=== PATIENT | female | born 1990 | race Caucasian/White ===

== ENCOUNTER → 2017-08-24 14:20 | Outpatient (CLI) | payer BC, SELFPAY ==
[2017-08-24 16:12] LABS: Hematocrit 33.6 % (37-47); Hemoglobin 11.2 g/dl (12.0-15.0); Mean Corp Hgb Conc 33.3 g/gl (32-36); Mean Corpuscular Volume 93.1 fL (81-99); Mean Platelet Vol. 11.7 fl (6.2-12.0); Platelet Count 190 K/mm3 (150-450); RBC Distribution Width CV 12.9 % (11.6-14.6); RBC Distribution Width SD 42.9 fl (35.1-43.9); Red Blood Count 3.61 M/mm3 (4.2-5.4); White Blood Count 10.4 K/mm3 (4.4-11.0)
[2017-08-24 16:13] LABS: Scan Indicated on CBC? Y/N NO
[2017-08-24 16:20] LABS: Glucose Challenge Gest 1H 50g 84 mg/dL (70-140)
== END ==
PROVIDERS: Visit Provider Obstetrics & Gynecology
DX: Z34.83 Encounter for supervision of other normal pregnancy, third trimester (principal)
CPT/HCPCS: 82950; 85027; 86850

== ENCOUNTER → 2017-10-19 16:03 | Outpatient (CLI) | payer BC, SELFPAY ==
[2017-10-20 11:18] LABS: Group B Strep DNA By PCR POSITIVE (Negative); Probe Check PASS
== END ==
PROVIDERS: Visit Provider Obstetrics & Gynecology
DX: Z36.85 Encounter for antenatal screening for Streptococcus B (principal)
CPT/HCPCS: 87653

== ENCOUNTER 2017-11-01 21:24 | Emergency (ER) | payer BC, SELFPAY ==
[2017-11-01 21:26] VITALS: BP 120/73; PULSE 92; RESP 18; TEMP 36.6; O2SAT 97; BMI 24.5
[2017-11-01 21:41] VITALS: O2SAT 97
--- NOTE | 2017-11-01 22:20 | ED.VISSUMM ---
- ER Visit Summary Date of Service: 11/01/17 Chief Complaint: Sore throat, cough History of Present Illness: The patient is a 27 F 38 week gestation presents sore throat cough for the past 5 days. States has shortness of breath. No chest pains. No headache or visual changes. No right upper quadrant pain. He is followed by Dr. Farfan. Did see her on Thursday prior to symptoms starting. Has an appointment tomorrow. No urinary symptoms. No myalgias. No complications with thus far. No tobacco, alcohol, or illicit drug use. History of asthma. Denies any wheezing. Physical Examination: General: Alert and oriented ?3, no acute distress HEENT: Normocephalic, atraumatic. Moist mucosa membranes. TMs normal bilaterally. No posterior pharyngeal erythema. Neck: supple, nontender. Cardiovascular: Regular rate and rhythm, no murmurs Respiratory: Normal breath sounds, symmetric, no distress Abdomen: Soft, nontender, nondistended Extremities: Nontender, no edema, pulses intact ?4 Neuro: no focal neurological deficits. Test Results: [] Emergency Department Course and Treatment: Patient vital signs stable. Bedside ultrasound with movement, heart tones 125. Discussed URI symptoms. Discussed [id number] prescription. She also has appointment with her OB tomorrow for reevaluation. Patient no exertional dyspnea or hypoxia or tachycardia for concerns of PE symptoms. She will follow-up as scheduled, return if any worsening symptoms. Treatment Plan: [] Disposition: Discharge Impression: 1. Upper respiratory infection 2. Third trimester This note was generated with [employer] dictation software. It may contain incorrect words, spelling, and punctuation that were not noted in review of the chart prior to signing ED Disposition - Plan for ED Patient: Disposition: Home or Assisted Living Chief Complaint: Cold Sx Diagnosis: Upper respiratory infection, Third trimester Instructions: ED Upper Resp Infec Abx Tx Prescriptions: Albuterol Sulfate [Proventil Hfa] 6.7 gm IH Q4H PRN PRN #1 [email or web address] PRN Reason: Wheezing Azithromycin [Zithromax Z-Thad] 250 mg PO UD #1 box Referrals: Keerthi Davalos PA-C [Primary Care Provider] - Gaby Farfan MD [STAFF PHYSICIAN] - Keep Lilly appointment
[2017-11-01 23:03] VITALS: BP 114/69; PULSE 80; O2SAT 96
== END 2017-11-01 23:04 | disposition home or self-care (01) ==
PROVIDERS: Emergency Provider Emergency Medicine; Family Provider Family Medicine; PCP Family Medicine
DX: O26.893 Other specified pregnancy related conditions, third trimester (principal); J06.9 Acute upper respiratory infection, unspecified; Z3A.38 38 weeks gestation of pregnancy
CPT/HCPCS: 99282

== ENCOUNTER 2017-11-03 13:45 | Inpatient (IN) | payer BC, SELFPAY ==
[2017-11-03 13:12] VITALS: BMI 24.1
[2017-11-03 13:42] LABS: ROM Internal Control Test YES-OK TO RESULT pt. (Internal QC)
[2017-11-03 13:43] LABS: ROM Patient Test POSITIVE (Negative)
[2017-11-03 14:18] LABS: Hematocrit 36.3 % (37-47); Hemoglobin 12.3 g/dl (12.0-15.0); Mean Corp Hgb Conc 33.9 g/gl (32-36); Mean Corpuscular Hgb 30.8 pg (27.0-32.0); Mean Platelet Vol. 10.9 fl (6.2-12.0); Platelet Count 215 K/mm3 (150-450); RBC Distribution Width CV 12.3 % (11.6-14.6); RBC Distribution Width SD 40.9 fl (35.1-43.9); Red Blood Count 3.99 M/mm3 (4.2-5.4); Scan Indicated on CBC? Y/N NO; White Blood Count 14.6 K/mm3 (4.4-11.0)
[2017-11-03] MEDS: Oxytocin 30 units/NS 500 ml 30 UNITS/500 ML IV.SOLN IV (14:54)
[2017-11-03] MEDS: Lactated Ringers 1,000 ML 50 ML IV ×2 (18:55→19:45)
[2017-11-03] MEDS: fentaNYL-bupivacaine (epidural) 100 ML BAG EPIDURAL (19:15)
--- NOTE | 2017-11-03 20:03 | PCM.PN.BLA ---
Progress Note LABOR PROGRESS NOTE -- Pitocin induction after SROM 38 4/7 wk EGA Comfortable w/ epidural AVSS Lynn just inserted. EFM 110-120 with avg variability. Accels to 150s category I tracing. UCs q 2-4 mins CX 4-5 / -2 per RN check A/P: Induction of labor after SROM early in day. Continue pitocin induction prn. Watch continued progress, descent. Anticipate URI and has not picked up inhaler or Z pack. Afrin nasal spray for comfort while in labor, pushing. Pt to picker/puller or have the RX sent from [facility] outpatient pharmacy (sent there earlier today prior to pharmacy close)
--- NOTE | 2017-11-03 20:07 | PN_ITS ---
Progress Note LABOR PROGRESS NOTE -- Pitocin induction after SROM 38 4/7 wk EGA Comfortable w/ epidural AVSS Lynn just inserted. EFM 110-120 with avg variability. Accels to 150s category I tracing. UCs q 2-4 mins CX 4-5 / -2 per RN check A/P: Induction of labor after SROM early in day. Continue pitocin induction prn. Watch continued progress, descent. Anticipate URI and has not picked up inhaler or Z pack. Afrin nasal spray for comfort while in labor, pushing. Pt to pick up attendant or have the RX sent from [facility] outpatient pharmacy (sent there earlier today prior to pharmacy close)
[2017-11-03] MEDS: Oxymetazoline 0.05% 1 SPRAY SPRAY.BTL NASAL (21:41)
[2017-11-03] MEDS: Oxytocin 30 units/NS 500 ml 30 UNITS/500 ML IV.SOLN 334 UNITS IV (22:22)
--- NOTE | 2017-11-03 22:28 | PCM.OB.VAG ---
Vaginal Delivery Maternal Presentation: Spontaneous Rupture of Membranes Method of Induction: Pitocin Medical Reason for Induction: - - SROM Amniotic Membrane Rupture Type: Spontaneous at home Amniotic Fluid Description: Clear Final CORINA: 11/13/17 Final CORINA Source: US <20 weeks Gestational age: 38 Weeks and 4 Days Date of Procedure: 11/03/17 Pre-Operative Diagnosis: 38 4/7 wk SROM. Post-Operative Diagnosis: same Surgery/ Procedure Performed: Spontaneous Vaginal Delivery Anesthesiologist: Elyse Collins Type of Anesthesia: Epidural Description of Procedure: of a reeves viable male over intact perineum. Head delivered HAILE. No nuchal cord. Shoulders delivered easily. Vigorous, crying to maternal abdomen after bulb suction of OP and nares. Delayed cord clamping, cord then clamped x two and cut. Routine cord blood for typing collected. Ap 03/28. PP exam no laceration, no repair. Placenta delivered by spont expulsion, expression Normal appearing 3V cord, intact appearing, with trailing membranes. Ray Rocio counts correct Pt and infant tolerated delivery well EBL 250 cc Presentation: Vertex, HAILE Placental Delivery Description: Spontaneous, Expressed Placenta Disposition: [facility] Cord Vessel Description: 3 Vessels Cord Entanglement: None Drain: Lynn to straight drain Estimated Blood Loss: 250 A gender: Male (1 minute): 9 (5 minute): 9 Episiotomy Description: None Laceration: None Medications given after delivery: IV Pitocin Complications: None
--- NOTE | 2017-11-03 22:34 | DCINST_ITS ---
Discharge Diet: No Restrictions Discharge Activity: May Shower, May Take a Tub Bath May resume sexual activity in: 4-6 weeks Additional Activity Instructions:: Nothing in the vagina for 4-6 weeks. You may return to work/school in 6 weeks. Additional Instructions: If you experience any of the following, contact your healthcare provider. * Bleeding that soaks a pad every hour for 2 hours * Fever 100.4 or higher * Unrelieved abdominal pain * Problems urinating (including inability to urinate or burning while urinating) . * Visual changes * Severe headache * Flu-like symptoms * Pain or redness in one of both of your breasts * Pain, warmth, tenderness or swelling in your legs, especially the calf area * Frequent nausea and vomiting * Symptoms of depression or anxiety If you experience any of the following, call 911 or go to the nearest Emergency Room. * Chest pain * Problems breathing * Seizure activity * Partial or complete paralysis of a body part, slurred speech, weakness or drooping of the face, or a sudden inability to walk or hold your balance Allergies/Adverse Reactions: Allergies Sulfa (Sulfonamide Antibiotics) Allergy (Verified 11/01/17 21:26) Hives Medications to take at Discharge Vits [Prenatabs FA] 1 tablet PO DAILY 05/28/15 Acetaminophen 650 mg PO Q4H PRN PRN 11/01/17 Albuterol Sulfate [Proventil Hfa] 6.7 gm IH Q4H PRN PRN #1 hfa.aer.ad 11/01/17 Azithromycin [Zithromax Z-Thad] 250 mg PO UD #1 box 11/01/17 Orders to be completed after discharge: Electric breast pump Time Frame: 1 Year, Location: None Selected Please Follow Up With: Gaby Farfan MD - [phone] When: Call to make an appointment with your doctor in 6 weeks. Primary Care Physician: Keerthi Davalos PA-C [Primary Care Provider] - Proposed Discharge Date: 11/04/17
[2017-11-03] MEDS: Oxytocin 30 units/NS 500 ml 30 UNITS/500 ML IV.SOLN 167 UNITS IV (22:52)
[2017-11-03] MEDS: 0.9% Saline Lock 10 ML Syringe IV (23:55)
[2017-11-04 01:25] VITALS: BP 121/67; PULSE 90; RESP 18; TEMP 36.6
[2017-11-04 03:50] VITALS: BP 111/71; PULSE 80; RESP 18; TEMP 36.6; O2SAT 96
[2017-11-04] MEDS: Naproxen 250 MG Tablet PO ×3 (04:05→21:23)
--- NOTE | 2017-11-04 05:22 | NURSING ---
At 0125, henderson cath discontinued.
--- NOTE | 2017-11-04 07:03 | PCM.PN.OB ---
Subjective: PPD#1 Breast feeding well. some inc cramping with nursing. No concerns otherwise. states baby doing well: 6# 9 oz wt Objective: Semirecumbent in bed, holding and nursing baby - Physical Exam General: Alert, Oriented x3, Cooperative, No apparent distress HEENT: Atraumatic, EOMI Neck: Supple Abdomen: Soft - Fundus firm NT at 3 cm inferior to umbilicus Neurological: Cranial nerves II-XII grossly intact Psych/Mental Status: Normal Affect Vital Signs Temp Pulse Resp BP Pulse Ox 97.9 F 80 18 111/71 96 11/04/17 03:50 11/04/17 03:50 11/04/17 03:50 11/04/17 03:50 11/04/17 03:50 Oxygen Delivery Method Room Air Weight: 69.91 kg Body Mass Index (BMI) 24.1 Intake and Output for Last 24 Hours 11/02/17 11/03/17 11/04/17 23:59 23:59 23:59 Intake Total 100 / 100 300 / 300 Output Total 3200 / 3200 Balance 100 / 100 -2900 / -2900 Laboratory Tests Past 24 Hrs 11/03/17 11/03/17 11/03/17 13:10 13:55 13:55 WBC 14.6 H RBC 3.99 L Hgb 12.3 Hct 36.3 L MCV 91.0 MCH 30.8 MCHC 33.9 RDW 12.3 RDW Differential 40.9 Plt Count 215 MPV 10.9 Vag Amniotic Fld Detect POSITIVE H Blood Type A NEGATIVE Antibody Screen TNP 11/03/17 13:55 WBC RBC Hgb Hct MCV MCH MCHC RDW RDW Differential Plt Count MPV Vag Amniotic Fld Detect Blood Type Antibody Screen NEGATIVE Medical Necessity - Tobacco Use Smoking Status: Never smoker Assessment/Plan PPD#1 Stable pp. Continue routine care. GBS positive. Likely to stay until tomorrow.
[2017-11-04 08:00] VITALS: BP 109/73; PULSE 70; RESP 18; TEMP 36.3; O2SAT 97
[2017-11-04] MEDS: Azithromycin 250 MG Tablet 500 MG PO (08:50)
[2017-11-04] MEDS: Acetaminophen 500 MG Tablet 1000 MG PO ×2 (08:50→16:57)
[2017-11-04] MEDS: Albuterol 2.5 MG/3 ML VIAL.NEB. INHALATION (10:30)
[2017-11-04] MEDS: Prenatal Vits Tablet 1 TABLET PO (11:34)
[2017-11-04 11:43] VITALS: BP 105/63; PULSE 78; RESP 16; TEMP 36.1; O2SAT 99
[2017-11-04 16:42] VITALS: BP 99/62; PULSE 73; RESP 18; TEMP 36; O2SAT 98
[2017-11-04 19:40] VITALS: BP 96/57; PULSE 76; RESP 16; TEMP 36.1; O2SAT 98
[2017-11-05] MEDS: Acetaminophen 500 MG Tablet 1000 MG PO (01:09)
[2017-11-05 01:51] VITALS: BP 101/70; PULSE 69; RESP 17; TEMP 36; O2SAT 99
--- NOTE | 2017-11-05 07:31 | PCM.PN.OB ---
Subjective: PPD#2 Doing well. Nursing well. Minimal bleeding - Physical Exam General: Alert, Oriented x3, Cooperative, No apparent distress HEENT: Atraumatic Neck: Supple Abdomen: Soft - Fundus firm at 2 cm inferior to umbilicus, NT Psych/Mental Status: Normal Affect Vital Signs Temp Pulse Resp BP Pulse Ox 96.8 F L 69 17 101/70 99 11/05/17 01:51 11/05/17 01:51 11/05/17 01:51 11/05/17 01:51 11/05/17 01:51 Oxygen Delivery Method Room Air Weight: 69.91 kg Body Mass Index (BMI) 24.1 Intake and Output for Last 24 Hours 11/03/17 11/04/17 11/05/17 23:59 23:59 23:59 Intake Total 100 / 100 300 / 300 Output Total 4100 / 4100 Balance 100 / 100 -3800 / -3800 Medical Necessity - Tobacco Use Smoking Status: Never smoker Assessment/Plan PPD#2 Stable pp. Dischg home. RTO in 6 wk for pp check, prn sooner.
[2017-11-05] MEDS: Naproxen 250 MG Tablet PO (09:23)
[2017-11-05 09:25] VITALS: BP 97/63; PULSE 69; RESP 16; TEMP 36.5; O2SAT 97
[2017-11-05] MEDS: Senna/Docusate Sodium 1 Tablet PO (11:04)
[2017-11-05] MEDS: Prenatal Vits Tablet 1 TABLET PO (11:04)
[2017-11-05] MEDS: Azithromycin 250 MG Tablet PO (11:04)
== END 2017-11-05 13:15 | disposition home or self-care (01) | DRG 774 ==
LOC: WPOUT 13:52
PROVIDERS: Admitting Provider Obstetrics & Gynecology; Family Provider Family Medicine; PCP Family Medicine; Visit Provider Obstetrics & Gynecology
DX: O98.82 Other maternal infectious and parasitic diseases complicating childbirth (principal); B95.1 Streptococcus, group B, as the cause of diseases classified elsewhere; Z37.0 Single live birth; Z3A.38 38 weeks gestation of pregnancy
CPT/HCPCS: 59025; 59050; 84112; 85027; 86850; 86900; 99218; J7120; A4216; G0378

== ENCOUNTER → 2018-09-22 13:21 | Outpatient (CLI) | payer OTHER, SELFPAY ==
[2018-09-22 17:23] LABS: Chlamydia Trachomatis by PCR Negative (Negative); Neisserai gonorrhoeae by PCR Negative (Negative); Probe Check PASS; Sample Adequacy Control PASS; Specimen Processing Control PASS
== END ==
PROVIDERS: Visit Provider Obstetrics & Gynecology
DX: Z11.3 Encounter for screening for infections with a predominantly sexual mode of transmission (principal)
CPT/HCPCS: 87491; 87591

== ENCOUNTER → 2019-12-15 16:10 | Outpatient (CLI) | payer OTHER, SELFPAY ==
[2019-12-15 18:43] LABS: Chlamydia Trachomatis by PCR Negative (Negative); Neisserai gonorrhoeae by PCR Negative (Negative); Probe Check PASS; Sample Adequacy Control PASS; Specimen Processing Control PASS
[2019-12-21 02:33] LABS: HPV Reflexed? NOT INDICATED
== END ==
PROVIDERS: Visit Provider Obstetrics & Gynecology
DX: Z12.4 Encounter for screening for malignant neoplasm of cervix (principal); Z11.3 Encounter for screening for infections with a predominantly sexual mode of transmission; Z32.01 Encounter for pregnancy test, result positive
CPT/HCPCS: 87491; 87591; 88175; G0145

== ENCOUNTER → 2020-01-11 13:47 | Outpatient (CLI) | payer OTHER, SELFPAY ==
[2020-01-11 15:44] LABS: Absolute Lymphocyte Count 2.15 X10^3/uL (0.83-4.51); Absolute Neutrophil Count 6.1 X10^3/uL (2.0-7.7); Basophil# 0.06 X10^3/uL; Basophil% 0.7 % (0-1); Eosinophil# 0.12 X10^3/uL; Eosinophils% 1.3 % (0-5); Hematocrit 37.4 % (37-47); Hemoglobin 12.7 g/dL (12.0-15.0); Lymphocyte # 2.15 X10^3/ul (4.0); Lymphocyte % 24.1 % (19-41); Mean Corpuscular Hgb 30.5 pg (27.0-32.0); Mean Corpuscular Volume 89.7 fL (81-99); Monocyte# 0.48 X10^3/uL; Monocyte% 5.4 % (0-10); NRBC Flagged by Analyzer 0 % (0-5); Neutrophil # 6.08 X10^3/uL (2.7-7.7); Neutrophil % 68.3 % (47-70); Platelet Count 225 K/mm3 (150-450); RBC Distribution Width SD 38.8 fl (35.1-43.9); Red Blood Count 4.17 M/mm3 (4.2-5.4); White Blood Count 8.9 K/mm3 (4.4-11.0)
[2020-01-11 16:14] LABS: Color, Urine Yellow (Yellow); Glucose, Dipstick Normal (Normal); Ketone-Dipstick Negative (Negative); Leukocyte Esterase-Dipstick 25 /ul (Negative); Nitrite-Dipstick Negative (Negative); Occult Blood-Urine Negative /ul (Negative); Protein-Dipstick Negative (Negative); Specific Gravity, Urine 1.005 (1.002-1.030); Urine Bilirubin Dipstick Negative (Negative); Urine Clarity Clear (Clear); Urine Urobilinogen Normal (Normal)
[2020-01-11 16:19] LABS: Amphetamine Urine VISTA NEGATIVE (<1000 ng/mL); Barbiturate Urine VISTA NEGATIVE (< 200 ng/mL); Benzodiazepine Urine VISTA NEGATIVE (< 200 ng/mL); Cocaine Urine VISTA NEGATIVE (< 300 ng/mL); Ecstacy Urine VISTA NEGATIVE (< 500 ng/mL); Methadone Urine VISTA NEGATIVE (< 300 ng/mL); PCP Urine VISTA NEGATIVE (< 25 ng/mL); THC Urine VISTA NEGATIVE (< 50 ng/mL); Vista UDS pH Range 6
[2020-01-11 16:23] LABS: Free T3 2.5 pg/mL (2.18-3.98); T4 Free Direct 0.85 ng/dL (0.76-1.46); Thyroid Stim Hormone (TSH) 3.85 uIU/mL (0.358-3.74)
[2020-01-12 02:00] LABS: Prenatal RPR NONREACTIVE (NONREACTIVE)
[2020-01-12 10:35] LABS: HIV - WCH Non-Reactive (Nonreactive); Hepatitis B Surface Antigen Non-Reactive (Nonreactive); Hepatitis C Antibody Non-Reactive (Nonreactive); Rubella IgG 423.7 IU/mL
== END ==
PROVIDERS: Visit Provider Obstetrics & Gynecology
DX: O99.281 Endocrine, nutritional and metabolic diseases complicating pregnancy, first trimester (principal); E03.8 Other specified hypothyroidism; Z3A.00 Weeks of gestation of pregnancy not specified
CPT/HCPCS: 36415; 80307; 81002; 84439; 84443; 84481; 85025; 86703; 86762; 86803; 87340

== ENCOUNTER 2020-07-14 19:12 | Outpatient (CLI) | payer OTHER, SELFPAY ==
[2020-07-14 19:30] VITALS: BP 106/62; PULSE 97; TEMP 36.4
[2020-07-14 19:42] VITALS: BMI 23.6
[2020-07-14 20:20] LABS: ROM Internal Control Test YES-OK TO RESULT pt. (Internal QC)
[2020-07-14 20:21] LABS: ROM Patient Test Negative (Negative)
--- NOTE | 2020-07-14 20:29 | NURSING ---
Dr. Lynn notified that medical exam score required in person physician evaluation. Provider states he is not coming in to evaluate patient at this time and to discharge patient to home.
--- NOTE | 2020-07-20 09:21 | OB.TRI.NOTE ---
History of Present Illness Date of Service: 07/14/20 Was patient seen by the physician?: No Reason For Visit: R/O LABOR Date of Service: 07/14/20 Final CORINA: 07/29/20 Final CORINA Source: US <20 weeks Gestational age: 37 Weeks and 6 Days History of Present Illness: 37+ week intrauterine with patient presenting for possible rupture of membranes. She noted some leaking after sled riding. Allergies Sulfa (Sulfonamide Antibiotics) Allergy (Verified 07/14/20 19:42) Hives Laboratory Studies: Laboratory Tests 07/14/20 Range/Units 19:45 Vag Amniotic Fld Detect Negative (Negative) Physical Exam Vitals: Vital Signs Temp Pulse BP 97.6 F L 97 106/62 07/14/20 19:30 07/14/20 19:30 07/14/20 19:30 NST - FHR Rate Baby A NST Reactive:: Yes FHR Category:: Category I Impression/Plan 37+ week intrauterine with some leaking of urine. ROM test was negative. NST was reactive. Patient encouraged to minimize sled riding for the balance of her . Routine follow-up otherwise in the office.
== END 2020-07-14 20:40 | disposition home or self-care (01) ==
LOC: WPOUT 19:14 → WP 19:14
PROVIDERS: Visit Provider Obstetrics & Gynecology
DX: O26.893 Other specified pregnancy related conditions, third trimester (principal); R32 Unspecified urinary incontinence; Z3A.37 37 weeks gestation of pregnancy; Z88.2 Allergy status to sulfonamides
CPT/HCPCS: 59025; 59050; 84112; 99218; G0378

== ENCOUNTER 2020-07-21 21:20 | Inpatient (IN) | payer OTHER, SELFPAY ==
[2020-07-21 12:51] VITALS: BMI 23.9
[2020-07-21 14:46] LABS: Group B Strep DNA By PCR Negative (Negative); Internal Control PASS; Probe Check PASS; Specimen Processing Control PASS
[2020-07-21 20:42] VITALS: PULSE 88; TEMP 36.9; O2SAT 98
[2020-07-21 20:48] VITALS: BP 110/60; PULSE 85
[2020-07-21 21:11] LABS: ROM Internal Control Test YES-OK TO RESULT pt. (Internal QC); ROM Patient Test Negative (Negative)
[2020-07-21] MEDS: Lactated Ringers 1,000 ML 50 ML IV (21:50)
[2020-07-21 22:00] LABS: Absolute Lymphocyte Count 2.21 X10^3/uL (0.83-4.51); Absolute Neutrophil Count 7.8 X10^3/uL (2.0-7.7); Basophil# 0.05 X10^3/uL; Basophil% 0.5 % (0-1); Eosinophil# 0.19 X10^3/uL; Eosinophils% 1.7 % (0-5); Hematocrit 32.1 % (37-47); Hemoglobin 10.8 g/dL (12.0-15.0); Lymphocyte # 2.21 X10^3/ul (4.0); Lymphocyte % 19.9 % (19-41); Mean Corp Hgb Conc 33.6 g/dL (32-36); Mean Corpuscular Volume 89.2 fL (81-99); Monocyte# 0.76 X10^3/uL; Monocyte% 6.9 % (0-10); NRBC Flagged by Analyzer 0 % (0-5); Neutrophil # 7.78 X10^3/uL (2.7-7.7); Neutrophil % 70.1 % (47-70); Platelet Count 193 K/mm3 (150-450); RBC Distribution Width CV 12.1 % (11.6-14.6); RBC Distribution Width SD 39.1 fl (35.1-43.9); White Blood Count 11.1 K/mm3 (4.4-11.0)
[2020-07-21 22:01] VITALS: BP 108/60; PULSE 90
[2020-07-21 22:05] VITALS: PULSE 86; TEMP 36.7; O2SAT 97
--- NOTE | 2020-07-21 22:18 | NURSING ---
Error in charting. IV placed in left wrist, not right wrist.
--- NOTE | 2020-07-21 22:50 | NURSING ---
Late entry: RN received negative results for covid antigen swab collected by Tyrone Mosquera RN. When further questioned about covid symptoms, pt reported symptoms started the week before [facility] with asthma symptoms also worsening. Pt received covid antibody test which resulted negative two weeks prior to admission. Pt reports no new symptoms since onset before [facility]. RN notified charge nurse, Tyrone Mosquera RN. Pt to be treated as covid negative.
[2020-07-21 23:38] VITALS: O2SAT 98
[2020-07-21 23:39] VITALS: BP 105/61; PULSE 86; TEMP 36.5
[2020-07-22] VITALS (42 sets, daily range): BP systolic 88–136; BP diastolic 51–81; PULSE 52–88; RESP 16–18; TEMP 36–37.1; O2SAT 94–100
[2020-07-22] MEDS: Oxytocin 30 units/NS 500 ml 30 UNITS/500 ML IV.SOLN IV (06:11)
[2020-07-22] MEDS: Lactated Ringers 500 ML 999 ML IV (09:40)
--- NOTE | 2020-07-22 09:59 | PCM.HP.BLA ---
History and Physical Date of Admission: 07/22/20 [facility] [place] - H[place]ORY AND PHYSICAL (07/22/2020) Name: BREANNA GARCIA History of This : This is a 29-year-old G3, P2 who presents in labor at 39 weeks gestation. care has otherwise been uneventful. OB Physician: ERIN Brighton's Physician: Nahomy Carnes at [facility] ...................................................................... : 1990 Age: 29 Address: [address] [place] [address] Phone: (h) [phone] ([phone] Insurance Carrier: [facility] [id number] Emergency Contact: REI GARCIA/ [phone] ...................................................................... Final CORINA: 07/29/20 By Ultrasound: 11 weeks 3 days PARITY: (G-Total Pregnancies P-Fullterm,Premature,Induced AB,Spont AB, Ectopics, Multiple,Living) CORINA CONFIRMATION: By LMP: 10/11/19 Final CORINA: 07/29/20 OB PROBLEM LIST: ALLERGIC TO SULFA. A negative RhoGAM at 28 wks Asthma History Adi's TSH wnl Free T4 low at 28wks. Subclinical hypothyroidism, repeat Thyroid panel at 34wks has an uncle and cousins with Hemophilia says his mother was tested and IS NOT a carrier for hemophilia. Low fluid on first 2 pregnancies both induced--check HORACIO weekly starting 34 wks MSAFP and CF testing declined Presumptive COVID 28 wks gestation ALLERGIES: Sulfa Hives Sulfa (Sulfonamide Antibiotics) Hives and/or rash MEDICATIONS: Flonase 50 mcg/actuation spray,suspension as needed fluticasone 55 mcg-salmeterol 14 mcg/actuation breath activated powder As Directed 28 mg iron-800 mcg tablet One pill by mouth once a day ProAir HFA 90 mcg/actuation aerosol inhaler As Directed Zyrtec 10 mg capsule daily SOCIAL HISTORY: Smoking - Never Alcohol Use - weekends not while and beer not while Diet - balanced Diet, caffeine < 2 drinks per day and water tries for 4-5 16 oz Lifestyle - low stress lifestyle and Exercise - walks in the evenings/ busy with family 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, 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, 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, 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 Illicit Drug Use - denies use of street drugs Sexual Activity - Residence - lives with Place of - [place], [place] Hours Worked - 32-40 Spouse-Sig Other Name - Rei Spouse-Sig Other Occupation - Contractor Spouse-Sig Other Phone No - [phone] Children Name(s) - Andrey Wasserman PRIOR DELIVERY HISTORY DEL DATE GEST LAB WT LB WT OZ TYPE ANES LABOR TX 17 Oct 18 39 7 6 3 Vag Epidural No 19 Jul 03 41 14 5 7 Vag Epidural No ANTEPARTUM FLOW CHART VISIT GE RTC FU F F DC U U DATE WK MD WKS HT PN HR M SS BP ED WT DC GL D EF ST __ ____ ___ __ __ ___ __ __ __ ___ __ __ __ ___ __ 28 Jun JMW 1 34 V + + 116/76 0 151 - - Jun JMW 1 34 + + 114/62 sl 152 - - Jun JM 1 36 V + + 96/68 sl 151 1 50 -3 Jun JMW 2 34 + + 100/68 0 148 - - May JM 2 32 V + + 126/72 0 150 - - Jun 18 JMW 2 30 + + 100/60 sl 147 tr - May 16 JM 2 28 - + + 115/56 0 147 - - Apr 12 JMW 4 24 + + 115/69 0 142 tr - Mar 08 JMW 4 20 + + 114/58 0 136 - - Feb 01 JMW 3 16 + O 100/58 0 127 - - Dec 28 JMW 4 U+ US 90/70 0 124 - - ANTEPARTUM NOTE(S): Jul 16 2020: ctx's, Induce per Request, AGA by u/s Jul 10 2020: Doing Well, HORACIO subjectively normal Jul 03 2020: LARC completed, GBS today, u/s today Jun 19 2020: HORACIO=13 today Jun 05 2020: see progress note May 22 2020: Doing Well May 08 2020: doing well, Rhogam, 1hr GTT, TSH,Free T4 Apr 10 2020: Doing Well, Glucola Given Mar 13 2020: Sono Today,(R) foot pain periodically Feb 14 2020: Declines AFP, Doing Well Jan 10 2020: Labs and NOB papers today. Discuss Hashimotos. COMPREHENSIVE ANTEPARTUM NOTE(S): Jul 16 2020: Breanna is here for a PNV. Good FM. No edema present. Reports ctx's and cramping at least every hour. Clear discharge noticed in the past few days. Dilated 1 cm when she went to 07/14. Would like to do a cervix check and membrane sweep today. States she is ready to move things along. Interested in induction if possible. No concerns expressed at this time. Jul 14 2020: Call Msg from 6:15 this evening. Pt of Dr. Lynn. Breanna calling @ 37 wks 6 days stating she was sled riding and is pretty sure her water broke. Sent to OB for confirmation. OB and Dr Lynn notified. Jul 03 2020: 36wk, Hx of Oligo. BPP today HORACIO wnl 02/24. Discussed with pt, no further testing. GBS collected today. Desires membrane sweeping at 38wks. Asthma, PCP recently started nebulizer, now much improved. Subclinical hypothyroid, asymptomatic, no repeat labs. Jun 05 2020: Breanna presents for her PNV. She is reporting good FM and denies swelling in her extremities. Pt sts she struggles with allergies and has been taking her Claritin and nasal spray daily as usual, but has increased her use of Albuterol and is taking Sudafed as well as she began having increased nasal congestion, postnasal discharge, and sl tightness in her chest when trying to take a deep breath. These sx seem to be worse at night and exacerbated if she eats in the evenings. She denies any fevers and sts I really don't want to be tested for Covid. JT Jun 05 2020: 32wks, 1hr GTT wnl stu at another facility. TSH wnl, low free T4. Sublcinical hypothyroidism, asymptomatic. Will repeat Thryoid panel at 34weeks. Hx of Oligo, for Growth U/s and HORACIO at 34wks. consider twice weekly BPP's. Sore throat and congestion, asthma well controlled. Declines COVID testing, discussed quarantine for 10 days as a precaution. May 08 2020: 28wks, 1hr GTT, rhogam, CBC, TSH and free T4 today. May 08 2020: Labs drawn from left ac with 23g butterfly x 1 attempt. Patient tolerated well and site without compromise. JUSTIN rosenberg Feb 20 2020: TELEHEALTH NOB- Breanna is a 29 yo G 3 P 2 with CORINA 1-10-20 planning a vag del at [facility] with epidural, using Nahomy Carnes from [facility] for post discharge ped care and to breastfeed. 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 They are pleased about the . They have a 4 1/2 yo daughter and a 2 1/2 yo son. She had some untreated PPD two months PP after her last baby. If it occurs again she'd like to be more proactive with meds. Breanna has an allergy to Sulfa but none to food or latex. She does have severe seasonal allergies from Spring through Fall for which she uses Zyrtec and Flonase. Breanna has asthma and uses Proair and Fluticasone inhalers on a prn basis. Currently both inhalers are and I suggested she have them refilled. Other medical hx includes a varicella vaccine, a right thigh varicosity, thyroid issues with Adi Disease. She relates taking a thyroid med daily except in . States Dr Lynn watches her thyroid levels. She avoids dairy with this. Breanna's diet is generally well balanced with minimal caffeine and no soda. She drinks 4-5 16 oz bottles of water daily. Breanna is a lifetime non smoker, denies street drug use and uses alcohol, usually beer on weekends but not if . She is active with her family and tries to walk some. 20 min daily enc. Warning signs in pg discussed as well as otc meds ok to take, reaching the office after hours, lifting restriction of 25#, wearing her seatbelt low on her abd with understanding voiced. They have a cat in their office but she does not change the litter. She has a copy of What to Expect. Enc to call with any concerns. Enc to take office Class at the end of the year as nursing did not go well for her either baby. She is interested. Visit took 35 min. Sonny ANDERSON NEW Dec 15 2019: Breanna presents here today for Missed Menses appointment. 29 y.o. G 3 P 2 non-smoker with regular menses and LMP of 10-11-19 lasting her average of 5-7 days. UPT is positive today in our Office. Denies spotting/bleeding thus far. Presents at 9 weeks 2 days with an approximate CORINA of 07/17/20. Currently not taking a Vitamin, but plans to pick them up soon, with sample of One A Day Vitamin given today with [employer]. Reports nausea and tender breasts. Medication and Allergy lists up-dated. History of all normal pap screenings from 2013 through 2016. RADHA December 14 2020: ok REVIEW OF SYSTEMS: GENERAL - Denies fever, or chills SKIN - Denies rash, new skin lesions, or change in moles EYES - Denies blurred vision, or change in visual acuity EARS - Denies ear pain, or difficulty hearing NOSE - Denies nasal congestion, discharge, or bleeding MOUTH - Denies sore throat, or difficulty swallowing NECK - Denies pain or swelling RESPIRATORY - Denies shortness of breath, cough, wheezing CARDIOVASCULAR - Denies palpitations, chest pain, orthopnea, PND, peripheral edema, syncope or claudication GASTROINTESTINAL - Denies nausea, vomiting, diarrhea, constipation, Denies abdominal pain, melena and or bright red blood GENITOURINARY - Denies dysuria, frequency of urination, urgency, or hesitancy MUSCULOSKELETAL - Denies joint or muscle pain, or back pain NEUROLOGICAL - Denies localized numbness, weakness, or tingling PSYCHIATRIC - Denies depression, anxiety, substance abuse or suicide attempts ENDOCRINE - Denies heat or cold intolerance, weight loss or gain, increasing thirst HEMATO-IMMUNOLOGIC - Denies easy bruising, bleeding, oral ulcerations or recurrent infections GENETICS SCREENING: Age 35+ years: No Thalassemia: No Neural Tube Defect: No Down Syndrome: No NABOR-SACHS: No Sickle Cell Disease: No Hemophilia: Yes Musc. Dystrophy: No Cystic Fibrosis: No-declines screening [place] Chorea: No Mental Retardation: No Fragile X: No Other genetic: No Other defects: No SABs/still births: No Drugs since LMP: Yes INFECTION HISTORY: High risk AIDS: No High risk Hepatitis: No Exposed to TB: No Exposed to Herpes: No Rash/viral illness since LMP: No History of STD: No MENSTRUAL HISTORY: *Menses Amount/Duration: 5 to 7 daysMenses Regularity: RegularFrequency: monthlyMenarche (Age Onset): 15* PAST SUMMARY: PARITY: 1. Total Pregnancies............ 3 2. Full Term Pregnancies........ 2 3. Premature.................... 0 4. Abortions - Induced.......... 0 5. Abortions - Spontaneous...... 0 6. Ectopics..................... 0 7. Multiple Births.............. 0 8. Living Children.............. 2 PAST #1: Date of :.................. 07/07/15 Gestation Weeks:................ 41 Length of labor(hours):......... 14 Sex:............................ F Weight-lbs:............... 5 Weight-oz:................ 7 Type of Delivery:............... Vag Type of Anesthesia:............. Epidural Place of Delivery:.............. [place] Treatment of Labor?:.... No Comment: IOL, POST-DATES, OLIGO, SGA PAST #2: Date of :.................. 11/03/17 Gestation Weeks:................ 39 Length of labor(hours):......... 7 Sex:............................ M Weight-lbs:............... 6 Weight-oz:................ 3 Type of Delivery:............... Vag Type of Anesthesia:............. Epidural Place of Delivery:.............. [place] Treatment of Labor?:.... No Comment: PPD PHYSICAL EXAMINATION General Appearence: 29 yo female in no acute distress Vital Signs: AF, VSS Heart: RRR without rubs or gallops Lungs: CTA x 2 Breasts: deferred Abdomen: gravid Pelvis: Cervix: 4/85 Presentation: cephalic Station: 0 Fetus: Size: AGA Movement: present Heart: present Labs for : BREANNA GARCIA since 11/02/2019 ORDER DATEIN DESCRIPTION VALUE UNITS RANGE A+ COMMENT (ROM) RUPTURE OF MEMBRANES 07/21/20 NOTE Original Ordering Provider: Kavita Lynn ROM Negative Negative Amniotic fluid not present indicates No Rupture of Membranes at time of specimen collection. GROUP B STREP DNA BY PCR 07/21/20 NOTE Original Ordering Provider: Kavita Lynn GBS TEST RESULT Negative Negative OB TRIAGE PHYSICIAN NOTE 07/20/20 [facility] Medical Records Department [address] [place] [id number] OB Triage Physician Note 07/20/20920 MR#: [id number] Acct: [id number] Name: BREANNA GARCIA Rep #: [id number] : 1990 29 From: Kavita Lynn MD PCP: Status:DEP CLI Y Location: [facility] History of Present Illness Date of Service: 07/14/20 Was patient seen by the physician?: No Reason For Visit: R/O LABOR Date of Service: 07/14/20 Final CORINA: 07/29/20 Final CORINA Source: US <20 weeks Gestational age: 37 Weeks and 6 Days History of Present Illness: 37+ week intrauterine with patient presenting for possible rupture of membranes. She noted some leaking after sled riding. Allergies Sulfa (Sulfonamide Antibiotics) Allergy (Verified 07/14/20 19:42) Hives Laboratory Studies: Laboratory Tests 07/14/20 Range/Units 19:45 Vag Amniotic Fld Detect Negative (Negative) Physical Exam Vitals: Vital Signs Temp Pulse BP 97.6 F L 97 106/62 07/14/20 19:30 07/14/20 19:30 07/14/20 19:30 NST - FHR Rate Baby A NST Reactive:: Yes FHR Category:: Category I Impression/Plan 37+ week intrauterine with some leaking of urine. ROM test was negative. NST was reactive. Patient encouraged to minimize sled riding for the balance of her . Routine follow-up otherwise in the office. 07/20/20922 Date Kavita Lynn MD Cosigner Signature (if applicable): Date CC: Dr. Kavita Lynn MD Signed 24-35 Week Labs 05/08/20 HCT/HGB scanned Reviewed by KAVITA HEPATITIS C ANTIBODY 01/11/20 NOTE Original Ordering Provider: Kavita Lynn HEPATITIS C AB Non-Reactive Nonreactive Non Reactive: < 0.8 Equivocal: >/= 0.8 to < 1.0 Reactive: >/= 1.0 The CDC recommends that a reactive/equivocal HCV antibody result be followed up by the HCV Nucleic Acid Amplification test ([id number]) Reviewed by KAVITA HEPATITIS B SURFACE ANTIGEN 01/11/20 NOTE Original Ordering Provider: Kavita Lynn HEPB SURFACE AG Non-Reactive Nonreactive Reviewed by KAVITA HIV - [facility] 01/11/20 NOTE Original Ordering Provider: Kavita Lynn HIV - [facility] Non-Reactive Nonreactive Reviewed by KAVITA RUBELLA IGG 01/11/20 NOTE Original Ordering Provider: Kavita Lynn RUBELLA IGG 423.7 IU/mL Antibody results Interpretation of Immune Status < 5 IU/ml Presumed Non-immune 5 - < 10 IU/ml Equivocal > or = 10 IU/ml Presumed Immune Reviewed by KAVITA RPR 01/11/20 NOTE Original Ordering Provider: Kavita Lynn RPR NONREACTIVE NONREACTIVE Reviewed by KAVITA T AND S-NO CHARGE W/PNP 01/11/20 Reason for Type AND Screen/Red Cells: Surgery? [facility]~[address] [place], [address]~ BLOOD TYPE GEL A NEGATIVE N AB SCREEN GEL NEGATIVE N Reviewed by KAVITA T4 FREE DIRECT 01/11/20 NOTE Original Ordering Provider: Kavita Lynn T4 FREE DIRECT 0.85 ng/dL 0.76-1.46 Reviewed by KAVITA THYROID STIM HORMONE (TSH) 01/11/20 NOTE Original Ordering Provider: Kavita Lynn TSH 3.85 uIU/mL 0.358-3.74 H Reviewed by KAVITA ALCALA T3 01/11/20 NOTE Original Ordering Provider: Kavita Lynn FREE T3 2.5 pg/mL 2.18-3.98 Reviewed by KAVITA URINALYSIS, ROUTINE (DIPSTICK) 01/11/20 NOTE Original Ordering Provider: Kavita Lynn COLOR Yellow Yellow CLARITY Clear Clear GLUCOSE, UR Normal mg/dl Normal BILIRUBIN URINE Negative mg/dL Negative KETONE UR Negative mg/dl Negative SP.GR. DIPSTX 1.005 1.002-1.030 PH UR 7.0 5.0 - 8.0 PROT DIPSTX Negative mg/dl Negative UROBILI Normal mg/dl Normal NITRITE UR Negative Negative OCCULT BLOOD-UR Negative /ul Negative LEUK ESTERASE 25 /ul Negative H Reviewed by KAVITA URINE DRUG SCREEN (VISTA) 01/11/20 NOTE Original Ordering Provider: Kavita Lynn TO BE CONFIRMED CONFIRMATORY TESTING FOR ALL POSITIVE URINE DRUG SCREEN RESULTS WILL ONLY BE SENT OUT UPON PHYSICIAN ORDER. VISTA Urine Drug Screen methods provide only preliminary analytical test results. A more specific alternate chemical method must be used in order to obtain a confirmed analytical result. Gas chromatography/mass spectrometery (GC/MS) is the preferred confirmatory method. Clinical consideration and professional judgement should be applied to any drug of abuse test result, particularly when preliminary positive results are used. URINE TCA TESTING MUST BE ORDERED SEPARATELY. USE TEST MNEMONIC: [place]IST[facility] UDS PH 6 AMPHETAMINES NEGATIVE <1000 ng/mL BARBITIURATES NEGATIVE < 200 ng/mL BENZODIAZIPINE NEGATIVE < 200 ng/mL COCAINE NEGATIVE < 300 ng/mL ECSTACY NEGATIVE < 500 ng/mL METHADONE NEGATIVE < 300 ng/mL OPIATES NEGATIVE < 300 ng/mL PCP NEGATIVE < 25 ng/mL THC NEGATIVE < 50 ng/mL Reviewed by KAVITA CBC W/DIFF, AUTOMATED 01/11/20 NOTE Original Ordering Provider: Kavita Lynn WBC 8.9 K/mm3 4.4-11.0 RBC 4.17 M/mm3 4.2-5.4 L HGB 12.7 g/dL 12.0-15.0 HCT 37.4 % 37-47 MCV 89.7 fL 81-99 MCH 30.5 pg 27.0-32.0 MCHC 34.0 g/dL 32-36 RDW CV 12.0 % 11.6-14.6 RDW SD 38.8 fl 35.1-43.9 PLT 225 K/mm3 150-450 MPV 11.0 fl 6.2-12.0 NEUT% 68.3 % 47-70 LY% 24.1 % 19-41 MONO% 5.4 % 0-10 EO% 1.3 % 0-5 BASO% 0.7 % 0-1 IM GRAN % 0.200 % 0.0-0.9 IG% - Immature Granulocytes (promyelocytes, myelocytes and metamyelocytes) > 1% indicates that a LEFT SHIFT is Present. ABSOLUTE NEUT 6.1 X10 3/uL 2.0-7.7 ABSOLUTE LYMPH 2.15 X10 3/uL 0.83-4.51 NRBC, FLAGGED 0 % 0-5 Reviewed by KAVITA Reviewed by LISA PAP IG W/REFLEX HR HPV APTIMA 12/15/19 NOTE Original Ordering Provider: Kavita Lynn DIAGN . NEGATIVE FOR INTRAEPITHELIAL LESION OR MALIGNANCY. THIS SPECIMEN WAS RESCREENED PART OF OUR LIBRARY MONITOR PROGRAM. ADEQ . Satisfactory for evaluation. Endocervical and/or squamous metaplastic cells (endocervical component) are present. PERFORM . Deep Forrester, Doctor Of Nurse Anesthesia (ASCP) QC REV . Kindra Jacinto, Supervisory Doctor Of Nurse Anesthesia (ASCP) TEST METHOD . This liquid based ThinPrep(R) pap test was screened with the use of an image guided system. COMM . . PAPSMR . The Pap smear is a screening test designed to aid in the detection of premalignant and malignant conditions of the uterine cervix. It is not a diagnostic procedure and should not be used as the sole means of detecting cervical cancer. Both false-positive and false-negative reports do occur. HPV RFLX . The HPV DNA reflex criteria were not met with this specimen result therefore, no HPV testing was performed. Performed at: - [address] [id number] Account Receivable Associate: Aneta Farrar MD, Phone: [phone] Reviewed by KAVITA CT/THALIA [facility] BY PCR 12/15/19 NOTE Original Ordering Provider: Kavita Lynn [facility] PCR Negative Negative NG BY PCR Negative Negative Reviewed by KAVITA Impression /Plan: 39-week intrauterine in active labor. Preparations in progress for delivery.
[2020-07-22] MEDS: fentaNYL-bupivacaine (epidural) 100 ML BAG EPIDURAL (10:45)
[2020-07-22] MEDS: Lactated Ringers 1,000 ML 50 ML IV (11:04)
[2020-07-22] MEDS: Oxytocin 30 units/NS 500 ml 30 UNITS/500 ML IV.SOLN 334 UNITS IV (12:15)
--- NOTE | 2020-07-22 12:27 | PCM.OPRPT ---
Vaginal Delivery Maternal Presentation: Active Labor Amniotic Membrane Rupture Type: Artificial Amniotic Fluid Description: Clear Final CORINA: 07/29/20 Final CORINA Source: US <20 weeks Gestational age: 39 Weeks and 0 Days Date of Procedure: 07/22/20 Pre-Operative Diagnosis: IUP Post-Operative Diagnosis: IUP Surgery/ Procedure Performed: Spontaneous Vaginal Delivery Type of Anesthesia: Epidural Description of Procedure: Spontaneous vaginal delivery of a viable male with Apgars of 8/9 from an occiput anterior presentation with clear amniotic fluid and normal three-vessel placenta. No episiotomy or lacerations. Sponges okay. Delivery physician: Joaquín Lynn MD. Presentation: Vertex Placental Delivery Description: Spontaneous Placenta Disposition: [facility] Cord Vessel Description: 3 Vessels Cord Entanglement: None Estimated Blood Loss: 250 cc Infant A gender: Male (1 minute): 8 (5 minute): 9 Episiotomy Description: None Laceration: None Medications given after delivery: IV Pitocin, IM Methergin Complications: None
--- NOTE | 2020-07-22 12:29 | DCINST_ITS ---
<Joaquín Lynn - Last Filed: 07/22/20 12:29> Discharge Diet: No Restrictions Discharge Activity: May Shower, May Take a Tub Bath May resume sexual activity in: 4-6 weeks Additional Activity Instructions:: Nothing in the vagina for 4-6 weeks. You may return to work/school in 6 weeks. Call your doctor if you observe: Inability to urinate, Inability to have a bowel movement, Using more than one pad per hour Additional Instructions: If you experience any of the following, contact your healthcare provider. * Bleeding that soaks a pad every hour for 2 hours * Fever 100.4 or higher * Unrelieved incision or abdominal pain * Swelling, redness, discharge or bleeding from your incision or episiotomy site * Your incision begins to separate * Problems urinating (including inability to urinate or burning while urinating). * Visual changes * Severe headache * Flu-like symptoms * Pain or redness in one of both of your breasts * Pain, warmth, tenderness or swelling in your legs, especially the calf area * Frequent nausea and vomiting * Symptoms of depression or anxiety If you experience any of the following, call 911 or go to the nearest Emergency Room. * Chest pain * Problems breathing * Seizure activity * Partial or complete paralysis of a body part, slurred speech, weakness or drooping of the face, or a sudden inability to walk or hold your balance Allergies/Adverse Reactions: Allergies Sulfa (Sulfonamide Antibiotics) Allergy (Verified 07/21/20 20:50) Hives Medications to take at Discharge Vits [Prenatabs FA] 1 tablet PO DAILY 05/28/15 Albuterol Sulfate [Proventil Hfa] 6.7 gm IH Q4H PRN PRN #1 [email or web address] 11/01/17 Budesonide Aerosol [Pulmicort Aerosol] 0.5 mg INHALATION DAILY 07/21/20 Cetirizine HCl [Zyrtec] 10 mg PO DAILY 07/21/20 Please Follow Up With: Joaquín Lynn MD - [phone] When: Call to make an appointment with your doctor in 6 weeks. Primary Care Physician: Keerthi Davalos PA-C [Primary Care Provider] - Test Results: Test results from this visit will be discussed in further detail at your follow- up appointment, if applicable. <Jessika Vega - Last Filed: 07/23/20 08:42> Additional Instructions: If you experience any of the following, contact your healthcare provider. * Bleeding that soaks a pad every hour for 2 hours * Fever 100.4 or higher * Unrelieved incision or abdominal pain * Swelling, redness, discharge or bleeding from your incision or episiotomy site * Your incision begins to separate * Problems urinating (including inability to urinate or burning while urinating). * Visual changes * Severe headache * Flu-like symptoms * Pain or redness in one of both of your breasts * Pain, warmth, tenderness or swelling in your legs, especially the calf area * Frequent nausea and vomiting * Symptoms of depression or anxiety If you experience any of the following, call 911 or go to the nearest Emergency Room. * Chest pain * Problems breathing * Seizure activity * Partial or complete paralysis of a body part, slurred speech, weakness or drooping of the face, or a sudden inability to walk or hold your balance Test Results: Test results from this visit will be discussed in further detail at your follow- up appointment, if applicable.
[2020-07-22] MEDS: Ondansetron 4 MG/2 ML Vial IV (14:22)
[2020-07-22] MEDS: Ibuprofen 600 MG Tablet PO (14:26)
[2020-07-23] VITALS (10 sets, daily range): BP systolic 91–107; BP diastolic 45–62; PULSE 54–85; RESP 16–18; TEMP 36.6–36.9; O2SAT 98
[2020-07-23] MEDS: Ibuprofen 600 MG Tablet PO ×3 (00:09→14:59)
[2020-07-23] MEDS: Acetaminophen 500 MG Tablet 1000 MG PO ×2 (00:36→09:41)
[2020-07-23] MEDS: Loratadine 10 MG Tablet PO (06:53)
--- NOTE | 2020-07-23 08:42 | PCM.PN.OB ---
Subjective: PPD#1 Doing well. Mild lochia. Pain minimal. - Physical Exam Vitals/I&O's: Vital Signs Temp Pulse Resp BP Pulse Ox 97.8 F 54 L 16 102/58 L 98 07/23/20 03:05 07/23/20 03:05 07/23/20 03:05 07/23/20 03:05 07/22/20 10:37 Oxygen Delivery Method Room Air Weight: 69.428 kg Body Mass Index (BMI) 23.9 Intake and Output for Last 24 Hours 07/21/20 07/22/20 07/23/20 23:59 23:59 23:59 Intake Total 20.83 / 20.83 1685.30 / 1685.30 Output Total 900 / 900 Balance 20.83 / 20.83 785.30 / 785.30 General: Alert, Oriented x3, No apparent distress HEENT: Atraumatic, Normocephalic Neck: Supple Lungs: Normal air movement Cardiovascular: Regular rate Abdomen: Soft, Non Tender - uterus 2 cm below umbilicus Extremities: No edema Skin: No rashes Neurological: Cranial nerves II-XII grossly intact Psych/Mental Status: Normal Affect, Appropriate Microbiology Past 72 Hours 07/21/20 22:00 Mucosa - Nose SARS-CoV-2 Antigen (Rapid) - Final Current Medications Acetaminophen (Acetaminophen 500 Mg Tablet) 1,000 mg PO Q8H PRN PRN PRN Reason: Pain Score 1-3 Last Admin: 07/23/20 00:36 Dose: 1,000 mg Documented by: Albuterol Sulfate (Albuterol 2.5 Mg/3 Ml Vial.Neb.) 2.5 mg INHALATION Q4H PRN PRN Reason: Wheezing Bisacodyl (Bisacodyl 10 Mg Suppository) 10 mg RECTAL UD PRN PRN Reason: If no BM Budesonide (Budesonide Respules 0.5 Mg/2 Ml Ampul.Neb.) 0.5 mg INHALATION DAILY.RT VLAD Dibucaine (Dibucaine 30 Gm Tube) 1 applic TOPICAL TID PRN PRN; Protocol PRN Reason: Discomfort Hydrocortisone (Hydrocortisone 2.5% Crm) 1 applic TOPICAL TID PRN PRN; Protocol PRN Reason: Discomfort Ibuprofen (Ibuprofen 600 Mg Tablet) 600 mg PO Q6H PRN PRN PRN Reason: Pain Score 1-3 Last Admin: 07/23/20 06:17 Dose: 600 mg Documented by: Loratadine (Loratadine 10 Mg Tablet) 10 mg PO DAILY VLAD Last Admin: 07/23/20 06:53 Dose: 10 mg Documented by: Methylergonovine Maleate (Methylergonovine 0.2 Mg/Ml Ampul) 0.2 mg IM X1 PRN PRN Reason: Excess bleeding/uterine atony Ondansetron HCl (Ondansetron 4 Mg/2 Ml Vial) 4 mg IV Q4H PRN PRN PRN Reason: Nausea Last Admin: 07/22/20 14:22 Dose: 4 mg Documented by: Oxycodone HCl (Oxycodone 5 Mg Tablet) 5 - 10 mg PO Q4H PRN PRN PRN Reason: Pain Score 4-10 Senna/Docusate Sodium (Senna/Docusate Sodium 1 Tablet) 1 - 2 tablet PO DAILY PRN PRN PRN Reason: Constipation Simethicone (Simethicone 80 Mg Tablet) 80 mg PO PCHS PRN PRN Reason: Indigestion/Stomach pain Sodium Chloride (0.9% Saline Lock 10 Ml Syringe) 5 - 15 ml IV UD PRN PRN Reason: SALINE FLUSH Zolpidem Tartrate (Zolpidem Tartrate 5 Mg Tablet) 5 mg PO QHS PRN PRN PRN Reason: Insomnia Medical Necessity - Tobacco Use Smoking Status: Never smoker Assessment/Plan PPD#1 s/p . Doing well today. Home today.
== END 2020-07-23 16:00 | disposition home or self-care (01) | DRG 807 ==
LOC: WPOUT 21:26 → WP 21:26
PROVIDERS: Admitting Provider Obstetrics & Gynecology; PCP Family Medicine; Visit Provider Obstetrics & Gynecology
DX: O99.284 Endocrine, nutritional and metabolic diseases complicating childbirth (principal); Z37.0 Single live birth; E06.3 Autoimmune thyroiditis; J45.909 Unspecified asthma, uncomplicated; O99.52 Diseases of the respiratory system complicating childbirth; Z88.2 Allergy status to sulfonamides; Z3A.39 39 weeks gestation of pregnancy
CPT/HCPCS: 59025; 59050; 84112; 85025; 86850; 86900; 86901; 87081; 87426; 87653; 99218; J7120; G0378; J2405